=== PATIENT | male | born 1970 | race African-American/Black ===

== ENCOUNTER 2018-01-31 09:01 | Emergency (ER) | payer MEDICAID, OTHER ==
[~2018-01-31] VITALS: Ht 170.2 cm; Wt 145.1 kg
[2018-01-31 09:47] VITALS: BP 158/101
[2018-01-31] MEDS ORDERED: KETOROLAC TROMETH 60MG/2ML VIAL IM ONE (10:00)
== END 2018-01-31 10:31 | disposition home or self-care (01) ==
LOC: ER 09:10
DX: G89.29 Other chronic pain (principal); M25.562 Pain in left knee; R03.0 Elevated blood-pressure reading, without diagnosis of hypertension
CPT/HCPCS: 96372; 99283; J1885

== ENCOUNTER 2018-02-16 11:30 | Emergency (ER) | payer MEDICAID ==
[~2018-02-16] VITALS: Ht 170.2 cm; Wt 145.1 kg
[2018-02-16 12:20] VITALS: BP 157/118
[2018-02-16] MEDS ORDERED: cloNIDine HCL 0.1 MG TAB PO ONE (12:30)
[2018-02-16] MEDS ORDERED: KETOROLAC TROMETH 60MG/2ML VIAL IM ONE (12:30)
[2018-02-16] MEDS ORDERED: METHOCARBAMOL 500 MG TAB PO ONE (12:30)
== END 2018-02-16 13:35 | disposition home or self-care (01) ==
LOC: ER 11:30
DX: M54.5 Low back pain (principal); V43.52XA Car driver injured in collision with other type car in traffic accident, initial encounter; Y93.89 Activity, other specified; Y92.410 Unspecified street and highway as the place of occurrence of the external cause; Y99.8 Other external cause status
CPT/HCPCS: 96372; 99283; J1885